=== PATIENT | male | born 1955 | race Caucasian/White ===

== ENCOUNTER 2022-10-08 22:58 | Inpatient (IN) | payer MEDICARE, OTHER ==
[2022-10-08 23:54] LABS: #Eosinphils 0.1 10x3/uL (0.0-0.5); #Monocytes 0.5 10x3/uL (0.0-1.1); #Neutrophils 5.8 10x3/uL (1.5-8.4); %Basophils 0.4 % (0.0-2.0); %Eosinophils 1.1 % (0.0-6.0); %Lymphocytes 8.6 % (18.0-47.0); %Monocytes 7.4 % (0.0-10.0); %Neutrophils 81.9 % (40.0-75.0); Mean Corpuscular Hemoglobin 30.6 pg (27.0-33.0); Mean Corpuscular Volume 92.8 fl (81.2-95.1); Mean Platelet Volume 10.3 fl (7.4-10.4); Platelet Count 169 10x3/uL (150-450); RBC Distribution Width 12.9 % (11.5-14.5); Red Blood Cell (RBC) Count 4.57 10x6/uL (4.32-5.72); White Blood Cell (WBC) Count 7.1 10x3/uL (3.5-10.5)
[2022-10-08 23:55] LABS: Bilirubin Neg (Negative); Blood, Urine Negative (Negative); Clarity Clear (Clear); Glucose, Urine (Dipstick) Normal (Negative); Ketone, Urine 5 mg/dL (Negative); Leukocyte Negative (Negative); Nitrite Negative (Negative); Protein, Urine (Dipstick) Negative (Neg-Trace); Urobilinogen Normal mg/dL (Less than 2)
[2022-10-09 00:05] LABS: D-Dimer Test 0.58 mg/L FEU (0.19-0.50); INR-International Normal Ratio 0.9; PTT 27.2 sec (22.0-33.0); Prothrombin Time 9.6 sec (9.5-12.1)
[2022-10-09 00:11] LABS: CK (CPK) 1122 U/L (30-200); CRP (Inflammatory) Less than 0.50 mg/dL (= or < 0.5)
[2022-10-09 00:12] LABS: ALT (SGPT) 30 U/L (8-55); AST (SGOT) 170 U/L (5-34); Albumin 4.4 g/dL (3.4-4.8); Alkaline Phosphatase 75 U/L (40-110); Anion Gap 17 mmol/L (10-20); BUN (Urea Nitrogen) 14 mg/dL (8.4-25.7); Bilirubin, Total 0.4 mg/dL (0.2-1.2); Calc. Creatinine Clearance 0 mL/min (70-130); Calcium 9.4 mg/dL (7.8-10.44); Carbon Dioxide 24 mmol/L (23-31); Chloride 101 mmol/L (98-107); Estimated GFR 97; Globulin 2.5 g/dL (2.4-3.5); Glucose 120 mg/dL (80-115); Protein, Total 6.9 g/dL (5.8-8.1); Sodium 138 mmol/L (136-145)
[2022-10-09 00:41] LABS: CKMB 97.6 ng/mL (0-6.6)
[2022-10-09] MEDS ORDERED: Nitroglycerin 0.4 MG TAB (25 Tab Bottle) SL PRN (01:09)
[2022-10-09] MEDS ORDERED: Nitroglycerin 2% Ointment 1 INCH/1 GM Packet TOP SCH ×2 (01:30→06:00)
[2022-10-09] MEDS ORDERED: Potassium Chloride 10 MEQ in Premix Bag 1 BAG IVPB SCH (01:30)
[2022-10-09] MEDS ORDERED: Heparin 10,000 UNITS/ 10 ML VIAL SLOW IVP SCH (01:45)
[2022-10-09] MEDS ORDERED: Heparin 25,000 units/D5W 500 ML IVPB SCH (01:45)
[2022-10-09 02:23] VITALS: BMI 23.6
[2022-10-09 02:35] LABS: Hemoglobin 13.8 g/dL (13.5-17.5); Platelet Count 158 10x3/uL (150-450)
[2022-10-09 03:02] LABS: Cardiac Risk 3.3 (Less than 4.5)
[2022-10-09 03:07] LABS: Troponin I 48.905 ng/mL (< 0.028)
[2022-10-09 04:34] LABS: #Eosinphils 0.2 10x3/uL (0.0-0.5); #Monocytes 0.5 10x3/uL (0.0-1.1); #Neutrophils 4.1 10x3/uL (1.5-8.4); %Basophils 0.5 % (0.0-2.0); %Eosinophils 2.9 % (0.0-6.0); %Monocytes 9.2 % (0.0-10.0); %Neutrophils 70.2 % (40.0-75.0); Hemoglobin 13.3 g/dL (13.5-17.5); Mean Corpuscular HGB CONC 33.2 g/dL (32.0-36.0); Mean Corpuscular Hemoglobin 30.6 pg (27.0-33.0); Mean Corpuscular Volume 92.4 fl (81.2-95.1); Mean Platelet Volume 10.4 fl (7.4-10.4); Platelet Count 159 10x3/uL (150-450); RBC Distribution Width 12.9 % (11.5-14.5); Red Blood Cell (RBC) Count 4.34 10x6/uL (4.32-5.72); White Blood Cell (WBC) Count 5.8 10x3/uL (3.5-10.5)
[2022-10-09 05:05] LABS: Anion Gap 19 mmol/L (10-20); BUN (Urea Nitrogen) 15 mg/dL (8.4-25.7); Calc. Creatinine Clearance 103 mL/min (70-130); Calcium 8.8 mg/dL (7.8-10.44); Carbon Dioxide 22 mmol/L (23-31); Chloride 104 mmol/L (98-107); Estimated GFR 98; Glucose 110 mg/dL (80-115); Sodium 141 mmol/L (136-145)
[2022-10-09 05:30] LABS: Troponin I 56.446 ng/mL (< 0.028)
[2022-10-09] MEDS ORDERED: Aspirin Chewable 81 MG TAB PO SCH ×2 (05:45→09:00)
[2022-10-09] MEDS ORDERED: Nitroglycerin 50 MG/250 ML BOT 250 ML ONE (07:55)
[2022-10-09] MEDS ORDERED: Heparin 10,000 UNITS/ 10 ML VIAL ONE ×2 (07:55→07:56)
[2022-10-09] MEDS ORDERED: Sodium Chloride 0.9% 1,000 ML ONE (07:55)
[2022-10-09] MEDS ORDERED: Lidocaine 1% MPF 2 ML VIAL ONE (07:55)
[2022-10-09] MEDS ORDERED: Verapamil 5 MG/2 ML VIAL ONE (07:57)
[2022-10-09] MEDS ORDERED: Fentanyl 100 MCG/2 ML VIAL ONE (08:36)
[2022-10-09] MEDS ORDERED: Midazolam HCl 2 mg/2 ml Vial ONE (08:36)
[2022-10-09] MEDS ORDERED: Iopamidol 300 61% 100 ML VIAL FS ONE (10:18)
[2022-10-09 12:30] VITALS: BP 114/70; TEMP 98.4
[2022-10-09 18:55] LABS: Hemoglobin A1c 5.1 % (4.0-6.0)
[2022-10-10] MEDS ORDERED: Aspirin Chewable 81 MG TAB PO SCH (09:00)
== END 2022-10-09 13:29 | disposition short-term general hospital (02) | DRG 280 ==
LOC: CSHERS 22:58 → OBSVTOIN 10-09 02:02 → CSHTELE 10-09 02:02
PROVIDERS: ADMIT Family Medicine; ATTEND Internal Medicine
PROC: 4A023N7 Measurement of Cardiac Sampling and Pressure, Left Heart, Percutaneous Approach (ICD-10-PCS; principal; 2022-10-09)
PROC: B2111ZZ Fluoroscopy of Multiple Coronary Arteries using Low Osmolar Contrast (ICD-10-PCS; 2022-10-09)
PROC: B2181ZZ Fluoroscopy of Left Internal Mammary Bypass Graft using Low Osmolar Contrast (ICD-10-PCS; 2022-10-09)
PROC: B2151ZZ Fluoroscopy of Left Heart using Low Osmolar Contrast (ICD-10-PCS; 2022-10-09)
DX: I21.4 Non-ST elevation (NSTEMI) myocardial infarction (principal); J81.0 Acute pulmonary edema; G35 Multiple sclerosis; I10 Essential (primary) hypertension; I25.10 Atherosclerotic heart disease of native coronary artery without angina pectoris; E78.5 Hyperlipidemia, unspecified; Z88.8 Allergy status to other drugs, medicaments and biological substances; Z79.899 Other long term (current) drug therapy; Z90.49 Acquired absence of other specified parts of digestive tract; Z98.890 Other specified postprocedural states
CPT/HCPCS: 36415; 71045; 80048; 80053; 80061; 81003; 82550; 82553; 83036; 83605; 83735; 84443; 84484; 85025; 85379; 85610; 85730; 86140; 86850; 86900; 86901; 93005; 93010; 93306; 93459; 94760; 99152; C1769; C1894; J1644; J2250; J3010; J3480; J7050; Q9967